=== PATIENT | male | born 1950 | race Caucasian/White ===

== ENCOUNTER → 2016-10-26 | Outpatient (CLI) | payer MEDICARE, BC | END | disposition home or self-care (01) | LOC: PCVCCLINIC 11:43 | PROVIDERS: ATTEND Internal Medicine | DX: I25.10 Atherosclerotic heart disease of native coronary artery without angina pectoris (principal); I10 Essential (primary) hypertension; J43.2 Centrilobular emphysema; E78.5 Hyperlipidemia, unspecified; G47.33 Obstructive sleep apnea (adult) (pediatric); J44.9 Chronic obstructive pulmonary disease, unspecified; I45.9 Conduction disorder, unspecified; K21.9 Gastro-esophageal reflux disease without esophagitis; Z96.653 Presence of artificial knee joint, bilateral; Z79.82 Long term (current) use of aspirin; Z87.891 Personal history of nicotine dependence | CPT/HCPCS: 80061; 93005; G0463 ==

== ENCOUNTER → 2017-10-31 | Outpatient (CLI) | payer MEDICARE, BC | END | disposition home or self-care (01) | LOC: PCVCCLINIC 13:08 | DX: I25.119 Atherosclerotic heart disease of native coronary artery with unspecified angina pectoris (principal); I10 Essential (primary) hypertension; J43.2 Centrilobular emphysema; E78.5 Hyperlipidemia, unspecified; G47.33 Obstructive sleep apnea (adult) (pediatric); Z79.82 Long term (current) use of aspirin | CPT/HCPCS: 80061; 93005; G0463 ==

== ENCOUNTER → 2018-05-25 | Outpatient (CLI) | payer BC, OTHER ==
--- NOTE | 2018-05-25 13:21 | PCVCIMAG ---
APPROVED REPORT Study performed: 05/25/2018 11:19:27 EXAM: Comprehensive 2D, Doppler, and color-flow Echocardiogram Patient Location: Echo lab Status: routine BSA: 2.09 HR: 74 bpmBP: 130/70 mmHg Rhythm: NSR Other Information Study Quality: Technically Difficult Risk Factors: Cardiac Risk Factors: HTN, Hyperlipidemia Indications CAD Hypertension/HDD Stents, RISHI, COPD 2D Dimensions IVSd: 17.33 (7-11mm)LVOT Diam: 21.89 (18-24mm) LVDd: 41.71 mm PWd: 8.14 (7-11mm)Ascending Ao: 39.78 (22-36mm) LVDs: 37.54 (25-40mm) Left Atrium: 41.68 (27-40mm) Aortic Root: 34.14 mm LV Single Plane 4CH: 64.28 % LV Single Plane 2CH: 44.07 % Biplane EF: 55.3 % Volumes Left Atrial Volume (Systole) Single Plane 4CH: 29.10 mLSingle Plane 2CH: 43.65 mL LA ESV Index: 17.00 mL/m2 Aortic Valve AoV Peak Bertin.: 1.23 m/s AO Peak Gr.: 6.04 mmHg Mitral Valve E/A Ratio: 0.7 MV Decel. Time: 237.48 ms MV E Max Bertin.: 0.57 m/s MV A Bertin.: 0.82 m/s IVRT: 166.09 ms TDI E/Lateral E': 5.70E/Medial E': 7.13 Medial E' Bertin.: 0.08 m/s Lateral E' Bertin.: 0.10 m/s Pulmonary Valve PV Peak Gr.: 5.19 mmHg Pulmonary Vein P Vein S: 0.63 m/sP Vein A: 0.32 m/s P Vein D: 0.41 m/sP Vein A Dur.: 117.6 msec P Vein S/D Ratio: 1.54 Left Ventricle The left ventricle is normal size. There is normal LV segmental wall motion. There is normal left ventricular wall thickness. Left ventricular systolic function is normal. The left ventricular ejection fraction is within the normal range. LVEF is 55-60%. Mild diastolic dysfunction is present (impaired relaxation pattern). Right Ventricle The right ventricle is normal size. The right ventricular systolic function is normal. Atria The left atrium size is normal. The right atrium size is normal. Aortic Valve The aortic valve is normal in structure. No aortic regurgitation is present. There is no aortic valvular stenosis. Mitral Valve The mitral valve is normal in structure. There is no mitral valve regurgitation noted. No evidence of mitral valve stenosis. Tricuspid Valve The tricuspid valve is normal in structure. There is no tricuspid valve regurgitation noted. Pulmonic Valve The pulmonary valve is normal in structure. There is no pulmonic valvular regurgitation. Great Vessels The aortic root is normal in size. Ascending aorta mildly dilated (4.0cm) IVC is normal in size and collapses >50% with inspiration. Pericardium There is no pericardial effusion. <Conclusion> Left ventricular systolic function is normal. There is normal LV segmental wall motion. LVEF is 55-60%. Mild diastolic dysfunction The aortic valve is normal in structure. No aortic regurgitation or stenosis The mitral valve is normal in structure. No mitral valve regurgitation. Pulmonary artery pressure could not be reliably ascertained Ascending aorta mildly dilated (4.0cm) There is no pericardial effusion.
== END | disposition home or self-care (01) ==
LOC: PCVCIMAG 11:02
PROVIDERS: ATTEND Internal Medicine
DX: I25.10 Atherosclerotic heart disease of native coronary artery without angina pectoris (principal); I10 Essential (primary) hypertension; G47.33 Obstructive sleep apnea (adult) (pediatric); J44.9 Chronic obstructive pulmonary disease, unspecified
CPT/HCPCS: 93306

== ENCOUNTER → 2018-05-29 | Outpatient (CLI) | payer OTHER ==
[~2018-05-29] MED LIST: REGADENOSON 0.4 MG/5 ML DISP.SYRIN. IV ONE
--- NOTE | 2018-05-29 16:35 | PCVCIMAG ---
APPROVED REPORT Imaging Protocol: Rest Tc-99m/Stress Tc-99m 1 day Study performed: 05/29/2018 13:49:31 Indication: CAD Patient Location: Out-Patient Stress Nurse: Rosario Rosado RN, Estela Petersen RN HI Tech:Elma Singhewelina [facility] Ht: 5 ft 8 in Wt: 210 lbs BSA: 2.09 m2 HR: 66 bpm BP: 124/84 mmHg BMI: 31.9 Rhythm: Sinus Rhythm, Incomplete RBBB Medical History Medical History: HTN, Hyperlipidemia, COPD, Former Smoker Medications: Albuterol, Norvasc, ASA, Losartan-HCTZ, Metoprolol, Omeprazole, Allergies: No known drug allergies Cardiac Risk Factors: Age Previous Cardiac Procedures: 2011 PCI - MARKEL Pretest Chest Pain Characteristics: No chest pain Meds Held (24 hrs): Metoprolol Resting Data Rest SPECT myocardial perfusion imaging was performed in supine position 45 minutes following the intravenous injection of 10.3 mCi of Tc-99m Sestamibi. Time of rest injection: 1300 Date: 05/29/2018 Administration Route: IV Administration Site: Right AC Pharmacologic Stress Pharmacologic stress test was performed by injecting Regadenoson 0.4 mg IV push over 10-15 seconds immediately followed by the intravenous injection of 32.8 mCi of Tc-99m Sestamibi. Time of stress injection: 1420 Date: 05/29/2018 Administration Route: IV Administration Site: Right AC Gated Stress SPECT was performed 45 minutes after stress injection. The images were gated to evaluate regional wall motion and calculate left ventricular ejection fraction. Stress Test Details Stress Test: Pharmacologic stress testing performed using 0.4 mg of regadenoson per 5 mL given IV over 10 seconds. Reason for pharmacologic stress test: back issues. HRMax Heart Rate (APMHR): 154 bpm Resting HR: 66 bpmTarget HR (85% APMHR): 130 bpm Max HR Achieved: 90 bpm % of APMHR: 58 Recovery HR: 75 bpm BP Resting BP: 124/84 mmHg Max BP: 145/80 mmHg Recovery BP: 132/78 mmHg ECG Resting ECG: Sinus Rhythm, right ventricular conduction delay Stress ECG: Sinus Rhythm, right ventricular conduction delay ST Change: None Maximum ST Deviation: 0 mm Arrhythmia: VPC Recovery ECG: Sinus Rhythm, right ventricular conduction delay Recovery ST Change: None Recovery ST Deviation: 0 mm Recovery Arrhythmia: None Clinical Reason for Termination: Completed protocol Stress Symptoms: Nausea, Dyspnea Exercise duration: 0 min 55 sec Symptoms resolved with caffeine. Stress ECG Conclusion ECG: Non-ischemic Clinical: Non-ischemic Study Quality Artifact: Moderate Diaphragmatic artifact Study Data Post stress, the left ventricular ejection was 69%.. SSS: 8 SRS: 15 SDS: 0 TID = 0.93. Perfusion No evidence of stress induced ischemia. 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 Wall Motion Normal left ventricular size and function with no regional wall motion abnormalities. Nuclear Conclusion No evidence of stress induced ischemia. 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 Post stress, the left ventricular ejection was 69%. No prior study available for comparison. Interpreted by: Rolly Pino MD Electronically Approved: 05/29/2018 16:22:20 <Conclusion> ECG: Non-ischemic Clinical: Non-ischemic
== END | disposition home or self-care (01) ==
LOC: PCVCIMAG 12:56
PROVIDERS: ATTEND Internal Medicine
DX: I25.119 Atherosclerotic heart disease of native coronary artery with unspecified angina pectoris (principal); R94.31 Abnormal electrocardiogram [ECG] [EKG]
CPT/HCPCS: 78452; 93017; A9500; J2785

== ENCOUNTER → 2018-11-27 | Outpatient (CLI) | payer OTHER | END | disposition home or self-care (01) | LOC: PCVCCLINIC 16:25 | PROVIDERS: ATTEND Internal Medicine | DX: I25.119 Atherosclerotic heart disease of native coronary artery with unspecified angina pectoris (principal); I10 Essential (primary) hypertension; J43.2 Centrilobular emphysema; E78.2 Mixed hyperlipidemia; G47.33 Obstructive sleep apnea (adult) (pediatric) | CPT/HCPCS: 36415; 80061; 93005; G0463 ==